=== PATIENT | female | born 1970 | race Caucasian/White ===

== ENCOUNTER 2025-04-21 10:59 | Outpatient (AMB) | payer OTHER, SELFPAY ==
--- NOTE | 2025-04-21 11:01 | A.OFFVIS_ITS ---
Intake Visit Reasons: kidney stones Intake Note: New Patient is present for kidney stones Urology Rx:potassium, VIT-D3 Blood Thinners:none Imaging completed: Renal Ultrasound 02/22/25 Business Systems Technician Required: No Accompanied by: Spouse Allergies No Known Allergies Allergy (Verified 04/21/25 11:08) HPI Comments Details: Kamran is a pleasant male. He is a patient of . He is seen for the following urologic conditions - nephrolithiasis Recurrent stone former Currently on low-dose potassium citrate and hydrochlorothiazide Followed by Nephrology Would like to establish Urology in case intervention required Nephrolithiasis He presents for - evaluation for nephrolithiasis, recurrent stone former Presenting symptoms included flank plan associated with nausea Family History - positive Imaging - 04/03 - reports recent imaging with small stone Laboratory investigations - Stone composition - unknown 24 hour urine evaluation - none on file - although has completed many Interventions - ESWL Current therapeutic plan - surveillance imaging - encourage lemon fluid and 2.5 L per day water Review of Systems Const Denies chills and Denies fever(s) Card Reports no additional complaints and Denies syncope Resp Denies cough GI Denies abdominal pain and Denies heartburn Reports as per HPI and Denies change in libido Neuro Denies syncope Psych Denies change in libido Endo Denies change in libido Physical Exam Const General: cooperative, healthy appearing, comfortable and no acute distress Orientation/consciousness: patient oriented x3 HEENT Face and sinus: Yes normal facial exam Mouth: moist mucous membranes Neck Neck: Yes normal visual inspection, Yes full ROM and Yes trachea midline Chest Chest palpation & inspection: normal inspection of the chest Resp Effort & Inspection: normal respiratory effort, able to speak in complete sentences and no respiratory distress GI Inspection: Yes normal to inspection Back/Spine/Pelvis Cervical Spine: normal cervical lordosis Thoracic/Lumbar Spine: thoracic and lumbar spine normal to inspection Skin General skin exam: no rashes or lesions noted Neuro General: patient oriented x3, gait normal, tone normal and moves all extremities Extrem General: Yes normal to inspection and Yes capillary refill normal Results AMB Urinalysis, Automated UA Leukoctes 0 Roberto/uL Last Edit by OMID Cornejo on 04/21/25 15:07 UA Nitrite Negative Last Edit by OMID Cornejo on 04/21/25 15:07 UA Urobilinogen 0.2 mg/dL Last Edit by OMID Cornejo on 04/21/25 15:0 7 UA Protein 15 mg/dL Last Edit by OMID Cornejo on 04/21/25 15:07 UA pH 6.0 Last Edit by Jeniffer Blandon CCMA on 04/21/25 15:07 UA Blood 200 Jaylon/uL Last Edit by OMID Cornejo on 04/21/25 15:07 UA Specific [place] 1.015 Last Edit by OMID Cornejo on 04/21/25 15: 07 UA Ketone Negative Last Edit by OMID Cornejo on 04/21/25 15:07 UA Bilirubin 0 mg/dL Last Edit by OMID Cornejo on 04/21/25 15:07 UA Glucose 0 mg/dL Last Edit by OMID Cornejo on 04/21/25 15:07 Results Reviewed Results Reviewed: Laboratory Last Values Urine pH (Auto) 6.0 04/21/25 15:06 Specific [place] (Auto) 1.015 04/21/25 15:06 Urine Protein (Auto) 15 mg/dL 04/21/25 15:06 Glucose (UA)(Auto) 0 mg/dL 04/21/25 15:06 Urine Ketones (Auto) Negative 04/21/25 15:06 Urine Blood (Auto) 200 [place]/uL 04/21/25 15:06 Urine Nitrite (Auto) Negative 04/21/25 15:06 Urine Bilirubin (Auto) 0 mg/dL 04/21/25 15:06 Urine Urobilinogen (Auto) 0.2 mg/dL 04/21/25 15:06 Leukocyte Esterase (Auto) 0 Roberto/uL 04/21/25 15:06 Assessment & Plan Assessment & Plan (1) Nephrolithiasis: Code(s): N20.0 - Calculus of kidney Category: Medical Plan Six-month follow-up imaging Continue citrate Orders: Orders US renal BI 04/21/25 N20.0 - Calculus of kidney US bladder 04/21/25 N20.0 - Calculus of kidney AMB Urinalysis Automated 04/21/25 Z13.9 - Encounter for screening, unspecified Patient Instructions: This note is constructed using voice recognition software. While every effort has been made to ensure accuracy passenger rate clerk errors may have been included. Imaging studies, laboratory and physical exam results were discussed and reviewed in detail. No major barriers to patient understanding were identified. An opportunity to ask questions regarding the treatment plan was provided. All questions were answered. The patient expressed understanding and agreement with the above treatment plan. The patient is aware they should contact our office by phone for worsening of their current condition or the appearance of new urologic symptoms. Compliance is encouraged with any medications and followup testing that is ordered. It is a privilege to participate in the urologic care of your patient. If you have any questions or concerns regarding treatment for the above conditions, or other urologic issues, please do not hesitate to contact me. The office telephone contact is [phone]. Sincerely, Dr Yrn Lin MD, [facility] - Urology Compassionate Specialist Care for the Genitourinary System Coding Level of Care Code New Pt Level 3 (50023) Complex EM visit Add On G2211 Diagnoses Nephrolithiasis N20.0
== END 2025-04-21 11:46 | disposition home or self-care (01) ==
LOC: HO.HUSH 11:00
PROVIDERS: PCP Nurse Practitioner Family; Visit Provider Urology
DX: Z13.9 Encounter for screening, unspecified (principal)
CPT/HCPCS: 99203; G2211

== ENCOUNTER → 2025-04-21 10:59 | Outpatient (BNVA) | payer OTHER, SELFPAY | PROVIDERS: PCP Nurse Practitioner Family; Visit Provider Urology | DX: N20.0 Calculus of kidney (principal) | CPT/HCPCS: 81003 ==

== ENCOUNTER 2025-07-27 08:26 | Outpatient (REF) | payer OTHER, SELFPAY ==
--- NOTE | ~2025-07-27 | US_ITS ---
CLINICAL HISTORY: N20.0 - Calculus of kidney US kidneys with transabdominal imaging of the urinary bladder. Comparison: None Findings: Right kidney normal size and echotexture, 13.1 cm length. No hydronephrosis. Normal color flow. An interpolar cyst measuring 4.3 x 4.2 x 3.9 cm appears simple (Bosniak category 1). A nonshadowing interpolar echogenic focus measuring up to 3 mm may represent nonobstructing calculus. Left kidney normal size and echotexture, 16.0 cm length. No hydronephrosis. Normal color flow. A large exophytic lower pole cyst measuring 14.1 x 10.4 x 8.9 cm appears simple (Bosniak category 1). Prevoid bladder volume measures 324.6 mL. Postvoid bladder volume measures 11.2 mL. Bilateral ureteral jets documented by Doppler interrogation. No gross filling defects or wall thickening. Prostate gland volume is measured at 21.3 mL. Impression: 1. Bilateral renal cysts as described above. Possible small nonobstructing right renal calculus. This document has been electronically signed by: Johnie Hair MD on 07/27/2025 14:46:00
== END 2025-07-27 08:27 | disposition home or self-care (01) ==
LOC: HO.US 08:26
PROVIDERS: Visit Provider Urology
DX: N20.0 Calculus of kidney (principal)
CPT/HCPCS: 76770

== ENCOUNTER → 2025-07-27 08:30 | Outpatient (BNV) | payer OTHER, SELFPAY | PROVIDERS: Visit Provider Radiology Diagnostic Radiology | DX: N28.1 Cyst of kidney, acquired (principal) | CPT/HCPCS: 76770 ==